=== PATIENT | male | born 1955 | race Caucasian/White ===

== ENCOUNTER 2021-04-06 01:30 | Emergency (ER) | payer OTHER, SELFPAY ==
[2021-04-06 01:30] VITALS: BP 178/82; PULSE 91; RESP 20; TEMP 36.8; O2SAT 97
[2021-04-06 01:56] LABS: Basophils Absolute Auto 0.08 K/mm3 (0.00-0.10); Eosinophils Absolute Auto 0.09 K/mm3 (0.02-0.50); Eosinophils Percent Auto 1.1 % (1.0-6.0); Hematocrit 47.1 % (37.0-46.0); Hemoglobin 15.7 g/dL (12.4-15.3); Immature Granulocyte Absolute 0.05 K/mm3 (0.00-0.00); Immature Granulocyte Percent A 0.6 % (0.0-0.0); Lymphocytes Absolute Auto 1.06 K/mm3 (1.10-4.50); Lymphocytes Percent Auto 13.1 % (18.0-42.0); Mean Corpuscular HGB Conc 33.3 g/dL (32.0-36.0); Mean Corpuscular Hemoglobin 29.3 pg (27.0-31.0); Mean Corpuscular Volume 87.9 fL (78.0-102.0); Mean Platelet Volume 9.4 fl (8.7-11.0); Monocytes Absolute Auto 0.54 K/mm3 (0.10-0.90); Monocytes Percent Auto 6.7 % (2.0-11.0); Neutrophils Absolute Auto 6.3 K/mm3 (1.7-7.2); Neutrophils Percent Auto 77.5 % (50.0-70.0); Platelet Count Result 219 K/mm3 (150-420); Red Blood Count 5.36 M/mm3 (4.70-6.10); Red Cell Distribution Width 14.2 % (11.6-14.4); White Blood Count 8.1 K/mm3 (4.8-10.8)
[2021-04-06 02:02] LABS: Add Urine Microscopic? YES; Appearance Urine Clear (Clear); Bilirubin Urine Negative (Negative); Blood Urine Negative (Negative); Color Urine Yellow (Yellow); Glucose Urine UA Negative (Negative); Ketones Urine Negative (Negative); Leukocyte Esterase Ur Negative (Negative); Nitrate Urine Negative (Negative); Protein Urine 2+ (Negative); Specific Grav Ur 1.015 (1.010-1.020); Urobilinogen Urine 0.2 mg/dL (0.2-1.0)
[2021-04-06 02:04] LABS: Amphetamine Screen Urine Negative (Negative); Barbiturate Screen Urine Negative (Negative); Benzodiazepines Screen Urine Negative (Negative); Cannabinoid Screen Urine Positive (Negative); Cocaine Screen Urine Negative (Negative); Methadone Screen Urine Negative (Negative); Opiate Screen Urine Negative (Negative); Phencyclidine Screen Urine Negative (Negative)
[2021-04-06 02:05] LABS: Bacteria Urine None seen /hpf; RBC Urine None seen /hpf (0-2); Squamous Epithelial Cell Urine Rare /hpf (Few); WBC Urine None seen /hpf (0-3)
[2021-04-06 02:10] LABS: Alanine Aminotransferase 67 U/L (16-63); Albumin Level 3.8 g/dL (3.4-5.0); Alkaline Phosphatase 108 U/L (46-116); Anion Gap 12 mmol/L (8-16); Aspartate Amino Transferase 23 U/L (15-37); Bilirubin,Total 0.3 mg/dL (0.00-1.00); Blood Urea Nitrogen 15 mg/dL (7-18); Calcium 9.1 mg/dL (8.5-10.1); Carbon Dioxide 27 mmol/L (21-32); Chloride 103 mmol/L (98-108); Estimated Glomerular Filt Rate > 60; Glucose 156 mg/dL (70-99); Osmolality Calculated 297 mOsm/kg (285-295); Potassium 3.8 mmol/L (3.5-5.1); Sodium 142 mmol/L (136-145); Total Protein 7.6 g/dL (6.4-8.2)
[2021-04-06 02:12] LABS: Ethanol 129 mg/dL (0-6)
[2021-04-06 02:20] LABS: Salicylate 1.9 mg/dL (2.8-20.0); Thyroid Stimulating Hormone 2.93 uIU/mL (0.36-3.74)
[2021-04-06 02:21] LABS: Acetaminophen < 2 ug/mL (10-30)
--- NOTE | 2021-04-06 02:28 | PC.NURSE ---
explained to pt process for crisis counselor to be able to evaluate him regarding etoh level. repeat etoh level at 6am. pt states oh great, i just want to go home.
--- NOTE | 2021-04-06 02:30 | PC.NURSE ---
pt continues to deny wanting to harm self. states if i wanted to be , i would be .
--- NOTE | 2021-04-06 02:49 | PC.NURSE ---
pt agitated that he can not go home. explained called after he called her and stated she would be coming to facility. pt closing blinds. explained curtain needs to stay open to be in direct vision of nurse.
--- NOTE | 2021-04-06 03:12 | PC.NURSE ---
pt resting per cot at this time. light dimmed for comfort.
--- NOTE | 2021-04-06 03:16 | PC.NURSE ---
pt pacing in room at this time. pt in direct vision of RN
--- NOTE | 2021-04-06 03:28 | PC.NURSE ---
pt requested blood sugar check, 153. states would normally take some insulin . erp dr rodríguez notified. pt declined insulin at this time. offered food as pt states has not ate food today. pt declined food as well at this time.
[2021-04-06 03:32] LABS: Glucose Point of Care 153 (65-105)
--- NOTE | 2021-04-06 03:54 | PC.NURSE ---
here. in with pt.
--- NOTE | 2021-04-06 03:58 | PC.NURSE ---
states there is marital problems and pt has had increased depression. started nortriptyline approx 3 weeks ago. fmd encouraged to continue taking medication.
--- NOTE | 2021-04-06 04:33 | PC.NURSE ---
pt laying down at this time. remains in room
--- NOTE | 2021-04-06 05:54 | ED.PSYCH ---
HPI - Psych General Chief Complaint: Psychiatric Symptoms Stated Complaint: SUICIDIAL Source: patient Mode of arrival: ambulatory Limitations: no limitations History of Present Illness HPI Narrative: Patient is brought in by EMS. He states was cheating on him and this made him upset. He got to drinking and was picked up by the state police for DUI. At the police station, he evidently told the service technician copier to just shoot him, because he was given a DUI. He is therefore brought in for suicidal ideation, because the police felt he was indicated a desire for suicide. Duration: When he arrived here, a half hour later he denied any suicidal thoughts, and said his said that because he was intoxicated. He believes his words were blown out of proportion to his intention / meaning in the words. He denies suicidal thoughts now. He has been upset because he says his has been cheating on him. MD complaint: feels depressed Onset (ago): day(s) Duration: constant History of same: Yes Relieving factors: none Exacerbating factors: none Context: recent alcohol abuse Associated psychiatric symptoms: other (words that may include suicidal ideation) Associated symptoms: denies other symptoms Related Data Home Medications Medication Instructions Recorded Confirmed amlodipine 10 mg PO DAILY 04/06/21 04/06/21 clonidine HCl 0.1 mg PO BID 04/06/21 04/06/21 clopidogrel 75 mg PO DAILY 04/06/21 04/06/21 doxazosin 8 mg PO DAILY 04/06/21 04/06/21 insulin aspart U-100 [Novolog See Rx Instructions .ROUTE .COMPLEX 04/06/21 04/06/21 Flexpen U-100 Insulin] insulin glargine [Lantus Solostar See Rx Instructions .ROUTE .COMPLEX 04/06/21 04/06/21 U-100 Insulin] losartan 100 mg PO DAILY 04/06/21 04/06/21 metoprolol tartrate 50 mg PO DAILY 04/06/21 04/06/21 nortriptyline 25 mg PO DAILY 04/06/21 04/06/21 rosuvastatin 40 mg PO DAILY 04/06/21 04/06/21 tamsulosin 0.4 mg PO DAILY 04/06/21 04/06/21 Allergies Allergy/AdvReac Type Severity Reaction Status Date / Time No Known Allergies Allergy Verified 04/06/21 01:42 Review of Systems Constitutional: Constitutional: Reports no additional constitutional complaints Eyes: Eyes: Reports no additional eye complaints ENT: Reports system reviewed and no additional complaints, except as documented Cardiovascular: Cardiovascular: Reports no additional cardiovascular complaints Respiratory: Respiratory: Reports no additional respiratory complaints Gastrointestinal: Gastrointestinal: Reports no additional gastrointestinal complaints Genitourinary: Genitourinary: Reports no additional male genitourinary complaints Musculoskeletal: Musculoskeletal: Reports no additional musculoskeletal complaints Integumentary/Breasts: Skin/Breast: Reports system reviewed and no additional complaints, except as docu Neurologic: Reports system reviewed and no additional complaints, except as documented Psychiatric: Psychiatric: Reports no additional psychiatric complaints Endocrine: Endocrine: Reports no additional endocrine complaints Hematologic/Lymphatic: Hematologic/Lymphatic: Reports no additional hematologic/lymphatic complaints Allergic/Immunologic: Allergic/Immunologic: Reports no additional allergic/immunologic complaints [facility] Past Medical History Medical History (Updated 04/06/21 @ 06:22 by James Izaguirre MD) Anxiety and depression CAD (coronary artery disease) Diabetes mellitus Hypertension Suicide attempt Surgical History Surgical History (Updated 04/06/21 @ 06:15 by James Izaguirre MD) H/O laminectomy H/O shoulder surgery Stented coronary artery Family History Family History (Updated 04/06/21 @ 06:17 by James Izaguirre MD) Other No significant family history Social History Social History (Updated 04/06/21 @ 06:18 by James Izaguirre MD) Additional smoking assessment comments: denies smoking Alcohol use details: excess at times Substance use type: marijuana Living arrangements: wit
--- NOTE | 2021-04-06 05:55 | PC.NURSE ---
pt sitting up on side of bed. explained redraw for etoh level. voiced understanding. remains in room. pt denies suicidal ideation at this time.
--- NOTE | 2021-04-06 06:05 | PC.NURSE ---
call placed to [facility] betzaida tranter to see where pt truck is located. awaiting call back.
[2021-04-06 06:14] LABS: Ethanol 52 mg/dL (0-6)
--- NOTE | 2021-04-06 06:51 | PC.NURSE ---
meal offered, ordered scrambled eggs and coffee for pt and coffee for . explained time of arrival for [facility] counselor. call to [facility] for information about impound of truck. information given to pt and .
--- NOTE | 2021-04-06 07:17 | PC.NURSE ---
report to [facility]
[2021-04-06 07:32] LABS: Glucose Point of Care 126 (65-105)
[2021-04-06 08:37] VITALS: BP 145/88; PULSE 112; RESP 16; O2SAT 96
--- NOTE | 2021-04-06 08:50 | PC.NURSE ---
placido from mental health speaking with pt. pt signed safety contract and will go home with . pt and verbalize that they are comfortably with this plan for discharge and o/p f/u.
--- NOTE | 2021-04-06 09:01 | PM.EVENT ---
Event Note Event Note Event Note: Patient states that he feels a little rough this morning however he is no longer suicidal and wants go home. His is here and supportive. He was evaluated by psych services who were referring him for outpatient counseling and will be discharged today.
== END 2021-04-06 09:21 | disposition home or self-care (01) ==
PROVIDERS: Emergency Medicine; Emergency Provider Emergency Medicine
DX: F10.920 Alcohol use, unspecified with intoxication, uncomplicated (principal); Z79.899 Other long term (current) drug therapy; I25.10 Atherosclerotic heart disease of native coronary artery without angina pectoris; E11.9 Type 2 diabetes mellitus without complications; I10 Essential (primary) hypertension
CPT/HCPCS: 36415; 80053; 80307; 81001; 82948; 84443; 85025; 99284